=== PATIENT | female | born 1990 | race Caucasian/White ===

== ENCOUNTER → 2016-05-29 | Outpatient (CLI) | payer MEDICAID ==
--- NOTE | 2016-05-29 18:16 | DX ---
Supine abdomen 1237 hours. History: Rule out perforation due to IUD placed June,. Findings: No significant soft tissue masses are seen within the abdomen and pelvis. Bowel gas pattern is unremarkable. There are no significant calcifications. Osseous structures are normal. No radiopaq ue foreign bodies are seen. Impression: Normal supine abdomen. If indicated, consider correlation with pelvic ultrasound.
== END ==
LOC: FIMAGING 12:36
DX: Z03.89 Encounter for observation for other suspected diseases and conditions ruled out (principal); Z97.5 Presence of (intrauterine) contraceptive device